=== PATIENT | male | born 2000 | race Caucasian/White ===

== ENCOUNTER 2023-08-31 19:04 | Emergency (ER) | payer BC, OTHER ==
[~2023-08-31] VITALS: Ht 182.9 cm; Wt 90.7 kg
[2023-08-31 19:10] VITALS: BP 135/86; PULSE 73; RESP 16; TEMP 98; O2SAT 99
[2023-08-31] MEDS: KETOROLAC 30 MG/ML VIAL IM ONE (20:05)
[2023-08-31] MEDS: ACETAMINOPHEN EXTRA STRENGTH 500 MG TAB PO ONE (20:10)
[2023-08-31 23:00] VITALS: O2SAT 99
== END 2023-08-31 23:06 | disposition home or self-care (01) ==
LOC: MED 19:04
DX: S16.1XXA Strain of muscle, fascia and tendon at neck level, initial encounter (principal); S29.012A Strain of muscle and tendon of back wall of thorax, initial encounter; V49.88XA Car occupant (driver) (passenger) injured in other specified transport accidents, initial encounter; Y93.89 Activity, other specified; Y92.89 Other specified places as the place of occurrence of the external cause; Y99.8 Other external cause status
CPT/HCPCS: 72125; 72128; 72131; 96372; 99285; J1885